=== PATIENT | male | born 1965 | race American Indian/Alaskan Native ===

== ENCOUNTER 2022-03-29 11:00 | Emergency (ER) | payer SELFPAY ==
--- NOTE | 2022-03-29 13:27 | Emergency Department Report ---
ED Chest Pain HPI - General Chief Complaint: Chest Pain Stated Complaint: CHEST PAIN Time Seen by Provider: 03/29/22 13:14 Source: patient, EMS Mode of arrival: Stretcher Limitations: No Limitations - History of Present Illness Initial Comments: 56-year-old alcoholic male who presented with chest pain that has been going on for couple of months progressively getting worse. Patient has history of alcoholism and drink alcohol on daily bases. No fever or chills. No diarrhea or constipation reported. Patient reports nausea without any emesis. No other modifying or associated factors reported. Severity scale (0 -10): 6 - Related Data Previous Rx's Medication Instructions Recorded Last Taken Type Omeprazole Magnesium [PriLOSEC Otc] 20 mg PO BID 30 Days #60 tab 03/29/22 Un known Rx Ondansetron (Nf) [Zofran TAB] 8 mg PO Q8HR PRN 5 Days #15 tablet 03/29/22 Unknown Rx Allergies Allergy/AdvReac Type Severity Reaction Status Date / Time No Known Allergies Allergy Unverified 03/29/22 11:20 Heart Score - HEART Score History: Slightly suspicious EKG: Non-specific Age: 45-65 Risk factors: 1-2 risk factors Troponin: < normal limit HEART Score: 3 - EKG Read Time Time EKG Completed: 13:00 EKG Read Time: 14:00 - Critical Actions Critical Actions: 0-3 pts:0.9-1.7%risk of adverse cardiac event.Candidate for discharge ED Review of Systems ROS: Stated complaint: CHEST PAIN Other details as noted in HPI Comment: All other systems reviewed and negative Constitutional: no symptoms reported Cardiovascular: chest pain Gastrointestinal: abdominal pain (epigastric ) ED Past Medical Hx - Medications Home Medications: Home Medications Medication Instructions Recorded Confirmed Last Taken Type Omeprazole Magnesium [PriLOSEC Otc] 20 mg PO BID 30 Days #60 tab 03/29/22 Unknown Rx Ondansetron (Nf) [Zofran TAB] 8 mg PO Q8HR PRN 5 Days #15 tablet 03/29/22 Unknown Rx ED Physical Exam - General Limitations: No Limitations General appearance: alert, in no apparent distress - Head Head exam: Present: normal inspection - Eye Eye exam: Present: normal appearance Pupils: Present: normal accommodation - ENT ENT exam: Present: normal exam, normal orophraynx, mucous membranes moist - Neck Neck exam: Present: normal inspection - Respiratory Respiratory exam: Present: normal lung sounds bilaterally. Absent: respiratory distress, accessory muscle use - Cardiovascular Cardiovascular Exam: Present: regular rate, normal rhythm, normal heart sounds - GI/Abdominal GI/Abdominal exam: Present: soft, tenderness (LUQ tenderness to palpation ), normal bowel sounds. Absent: distended - Extremities Exam Extremities exam: Present: normal inspection, full ROM, normal capillary refill. Absent: tenderness, pedal edema - Back Exam Back exam: Absent: tenderness - Neurological Exam Neurological exam: Present: alert, oriented X3 - Psychiatric Psychiatric exam: Present: normal affect, normal mood - Skin Skin exam: Present: warm, dry ED Course Vital Signs 03/29/22 03/29/22 03/29/22 11:00 11:30 13:04 Temperature 98.6 F Pulse Rate 82 66 Respiratory 18 20 Rate Blood Pressure Blood Pressure 149/89 [Left] O2 Sat by Pulse 98 98 93 Oximetry 03/29/22 03/29/22 03/29/22 13:15 13:30 13:45 Temperature Pulse Rate 69 65 62 Respiratory 21 22 17 Rate Blood Pressure 125/79 123/77 123/77 Blood Pressure [Left] O2 Sat by Pulse 95 94 97 Oximetry 03/29/22 03/29/22 03/29/22 14:01 14:15 14:31 Temperature Pulse Rate 64 70 64 Respiratory 20 18 20 Rate Blood Pressure 126/83 123/77 126/82 Blood Pressure [Left] O2 Sat by Pulse 96 93 93 Oximetry 03/29/22 03/29/22 03/29/22 14:45 15:01 15:15 Temperature Pulse Rate 65 70 Respiratory 20 21 Rate Blood Pressure 126/83 116/73 116/73 Blood Pressure [Left] O2 Sat by Pulse 94 93 96 Oximetry 03/29/22 03/29/22 03/29/22 15:31 15:45 16:01 Temperature Pulse Rate Respiratory Rate Blood Pressure 125/83 125/83 122/82 Blood Pressure [Left] O2 Sat by Pulse 94 95 98 Oximetry 03/29/22 16:15 Temperature Pulse Rate Respiratory Rate Blood Pressure 122/82 Blood Pressure [Left] O2 Sat by Pulse 94 Oximetry - Reevaluation(s) Reevaluation #1: 03/29/22 13:21 chest pain and noted with LUQ which is likely as a result of alcoholic gastritis or pancreatitis -- so will check acute abdominal labs including lipase and rule out SD -- with troponin Reevaluation #2: 03/29/22 Noted with elevated alcohol level at 0.26 likely resulted in alcoholic gastritis--patient discharged home with Prilosec and warning MERLE score - Merle Score Age > 65: (0) No Aspirin use within the Past 7 Days: (0) No 3 or more CAD Risk Factors: (0) No 2 or more Angina events in past 24 hrs: (1) Yes Known CAD with more than 50% Stenosis: (0) No Elevated Cardiac Markers: (0) No ST Deviation Greater than 0.5mm: (0) No MERLE Score: 1 ED Medical Decision Making - Lab Data Result diagrams: 03/29/22 13:38 03/29/22 13:38 - EKG Data -: EKG Interpreted by Me - EKG Data 03/29/22 15:00 Noted with normal sinus rhythm at a rate of 62 bpm, which no ST elevation or depression in this normal ECG. - Medical Decision Making Here with chest pain/pressure--differential could be but not limited to myocardial infarction, pulmonary embolism, costochondritis, anxiety, gastritis, GERD, pancreatitis, and or pyelonephritis--in order to rule out the above-- so will go ahead and order routine cardiopulmonary work-up that include troponin, EKG, chest x-ray, BNP, CKMB, and CBC, CMP and urinalysis for any correctable infectious process or electrolyte abnormality as a cause. Critical care attestation.: If time is entered above; I have spent that time in minutes in the direct care of this critically ill patient, excluding procedure time. ED Disposition Clinical Impression: Left upper quadrant abdominal pain Alcoholic gastritis Qualifiers: Chronicity: unspecified Gastritis bleeding: presence of bleeding unspecified Qualified Code(s): K29.20 - Alcoholic gastritis without bleeding Disposition: 01 HOME / SELF CARE / HOMELESS Is pt being admited?: No Does the pt Need Aspirin: No Condition: Stable Instructions: Gastritis, Adult, [id number], Nonspecific Chest Pain, Adult Additional Instructions: Avoid excess alcohol drink as this could worsen your pain and symptoms Call and schedule a follow up with your doctor in the next 3-5 days for progress Increase your daily fluid to help your hydration Please do not hesitate to call or return to emergency room if your symptoms worsen Take your new medication Prilosec to help your abdominal discomfort or gastritis Prescriptions: Omeprazole Magnesium [PriLOSEC Otc] 20 mg PO BID 30 Days #60 tab Ondansetron (Nf) [Zofran TAB] 8 mg PO Q8HR PRN 5 Days #15 tablet PRN Reason: Nausea And Vomiting Referrals: KAREN MCGRATH MD [Referring] - 3-5 Days Time of Disposition: 15:05
--- NOTE | 2022-03-29 13:46 | XRay Report ---
CHEST 2 VIEWS INDICATION / CLINICAL INFORMATION: Chest Pain. COMPARISON: None available. FINDINGS: SUPPORT DEVICES: None. HEART / MEDIASTINUM: No significant abnormality. LUNGS / PLEURA: No significant pulmonary or pleural abnormality. No pneumothorax. ADDITIONAL FINDINGS: Lateral right mid to upper rib fractures may be chronic. IMPRESSION: 1. No acute pulmonary or pleural findings. Signer Name: Bull Lynch MD Signed: 03/29/2022 1:42 PM Workstation Name: [id number]
[2022-03-29 14:04] LABS: Basophils % (Auto) 0.6 % (0.0-1.8); Eosinophils % (Auto) 0.1 % (0.0-4.3); Hematocrit 43.9 % (35.5-45.6); Hemoglobin 14.6 gm/dl (11.8-15.2); Lymphocytes # (Auto) 1.5 K/mm3 (1.2-5.4); Lymphocytes % (Auto) 42.9 % (13.4-35.0); Mean Corpuscular HGB Conc 33 % (32-34); Mean Corpuscular Volume 100 fl (84-94); Monocytes # (Auto) 0.3 K/mm3 (0.0-0.8); Monocytes % (Auto) 7.6 % (0.0-7.3); Red Blood Count 4.41 M/mm3 (3.65-5.03); Red Cell Distribution Width 15.9 % (13.2-15.2)
[2022-03-29 14:06] LABS: Bilirubin,Urine NEG (Negative); Blood,Urine SM (Negative); Color,Urine Straw (Yellow); Protein,Urine <15 mg/dL mg/dL (Negative); Urobilinogen,Urine < 2.0 mg/dL (<2.0)
[2022-03-29 14:07] LABS: RBC,Urine < 1.0 /HPF (0.0-6.0); WBC,Urine < 1.0 /HPF (0.0-6.0)
[2022-03-29 14:08] LABS: Platelet Count 94 K/mm3 (140-440)
[2022-03-29 14:15] LABS: INR 0.87 (0.87-1.13)
[2022-03-29 14:16] LABS: Partial Thromboplastin Time 28.1 Sec. (24.2-36.6)
[2022-03-29 14:20] LABS: Amphetamine Screen,Urine Negative; Benzodiazepines Screen,Urine Negative; Cannabinoid Screen,Urine Negative; Cocaine Screen,Urine Negative; Methadone Screen,Urine Negative; Opiate Screen,Urine Negative
[2022-03-29 14:30] LABS: Alanine Aminotransferase 169 units/L (7-56); Albumin 4.7 g/dL (3.9-5); BUN/Creatinine Ratio 8; Blood Urea Nitrogen 6 mg/dL (9-20); Hemolysis Index 2
[2022-03-29 16:46] VITALS: BP 122/82
--- NOTE | 2022-03-30 18:54 | Electrocardiograph Report ---
[facility] Test Date: 2022-03-29 Test Time: 13:59:40 Pat Name: BAHMAN CHRISTY Department: Room: Gender: M Senior Talent Management Consultant: [birth year] : 1965 Requested By: BILLY ELIZONDO Order Number: [id number] Reading MD: Chad Tanner Measurements Intervals [place] Rate: 62 P: -10 SC: 121 QRS: 40 QRSD: 96 T: 49 QT: 420 QTc: 429 Interpretive Statements Sinus rhythm No previous ECG available for comparison Electronically Signed On 03-30-2022 18:53:54 EDT by Chad Tanner
== END 2022-03-29 17:00 | disposition home or self-care (01) ==
LOC: ED 11:00
DX: R10.11 Right upper quadrant pain (principal); K29.20 Alcoholic gastritis without bleeding; Z79.899 Other long term (current) drug therapy
CPT/HCPCS: 36415; 71046; 80053; 80307; 80320; 81001; 83690; 84484; 85025; 85610; 85730; 93005; 99284; G0480